=== PATIENT | male | born 1995 | race Two or more races ===

== ENCOUNTER 2025-02-24 16:31 | Emergency (ER) | payer OTHER ==
[~2025-02-24] VITALS: Ht 188 cm; Wt 102.1 kg
[2025-02-24] MEDS ORDERED: FAMOTIDINE/PF 20 MG in 0.9 % SODIUM CHLORIDE 8 ML IV PUSH ONE (17:45)
[2025-02-24] MEDS ORDERED: ONDANSETRON HCL 4 MG in 0.9 % SODIUM CHLORIDE 50 ML IV ONE (17:45)
[2025-02-24] MEDS ORDERED: 0.9 % SODIUM CHLORIDE 1,000 ML IV SCH (17:45)
[2025-02-24] MEDS ORDERED: ONDANSETRON HCL 2 MG/ML VIAL ONE (18:05)
[2025-02-24] MEDS ORDERED: FAMOTIDINE/PF 20 MG/2 ML VIAL ONE (18:05)
[2025-02-24 18:32] LABS: BASO % 0.7 % (0.1-1.2); EOS # 0.01 (0.04-0.54); EOS % 0.2 % (0.7-7.0); LYMPH # 1.52 (1.18-3.74); LYMPH % 25.4 % (19.3-53.1); MEAN PLATELET VOLUME 9.90 fl (9.4-12.4); MONO # 0.59 (0.24-0.82); MONO % 9.8 % (4.7-12.5); NEUT # 3.81 (1.56-6.13); NEUT % 63.6 % (34.0-71.1); RED CELL DISTRIBUTION WIDTH 13.9 % (11.6-14.4)
[2025-02-24 19:19] LABS: ALT/SGPT 46.0 U/L (12-78); AST/SGOT 67.0 U/L (15-37); BILIRUBIN TOTAL 0.71 mg/dL (0.3-1.2); BUN CREA RATIO 7.0 (7.0-25.0); CREATININE SERUM 1.08 mg/dL (0.70-1.30); GFR 80.28; GLOBULINA 3.2 G/DL (2.4-3.5); GLUCOSE FASTING 104.0 mg/dL (65-100); OSMOLALITY SERUM 278.0 MOSM/KG (275-295)
[2025-02-24] MEDS ORDERED: CARAFATE1 GM PO (20:43)
[2025-02-24] MEDS ORDERED: LEVSIN/SL0.125 MG SL (20:43)
[2025-02-24] MEDS ORDERED: PROTONIX40 MG PO (20:43)
[2025-02-24] MEDS ORDERED: PEPCID AC20 MG PO (20:43)
== END 2025-02-24 22:17 | disposition home or self-care (01) ==
LOC: ER 16:32
PROVIDERS: General Practice
DX: K29.70 Gastritis, unspecified, without bleeding (principal); R10.9 Unspecified abdominal pain; R10.13 Epigastric pain; R42 Dizziness and giddiness